=== PATIENT | female | born 1955 | race Two or more races ===

== ENCOUNTER 2018-02-03 18:08 | Emergency (ER) | payer OTHER ==
[~2018-02-03] VITALS: Ht 165.1 cm; Wt 85.3 kg
[~2018-02-03 18:08] MED LIST: ATACAND HCT 11 UDTA1; ATENOLOL100 MG; ATENOLOL25 MG; AZITHROMYCIN500 MG PO; DOLOGESIC 500-1 EACH PO; HYDROCHLOROTH12.5 M1; LEVSIN/SL0.125 MG SL; METFORMIN HCL500 M3; MICROZIDE12.5 MG; OMEPRAZOLE10 MG; OMEPRAZOLE20 MG; PEPCID40 MG PO; PROVENTIL3 ML/2.5 M IH; TUSSIONEX PENNKI5 ML PO; XOPENEX1.25 MG/0. IH
[2018-02-03] MEDS ORDERED: ATACAND16 MG (18:45)
[2018-02-03] MEDS ORDERED: ANASTROZOLE1 MG (18:46)
== END 2018-02-03 21:35 | disposition home or self-care (01) ==
LOC: ER 18:08
DX: B34.9 Viral infection, unspecified (principal)

== ENCOUNTER 2018-02-07 07:34 | Emergency (ER) | payer OTHER ==
[~2018-02-07] VITALS: Ht 165.1 cm; Wt 88.5 kg
[~2018-02-07 07:34] MED LIST changes: +ANASTROZOLE1 MG; +ATACAND16 MG
[2018-02-07] MEDS ORDERED: PROMETH-CODEIN 65 ML PO (13:42)
[2018-02-07] MEDS ORDERED: FLONASE ALLERG9.9 ML NASAL (13:42)
[2018-02-07] MEDS ORDERED: LEVALBUTER1.25 MG/3 IH (13:42)
[2018-02-07] MEDS ORDERED: MUCINEX DM ER1 EAC1 PO (13:42)
[2018-02-07] MEDS ORDERED: ZITHROMAX500 MG PO (13:42)
[2018-02-07] MEDS ORDERED: KETO10TA2 PO (13:42)
[2018-02-07] MEDS ORDERED: IPRATROPIU0.2 MG/1 M IH (13:48)
[2018-02-07] MEDS ORDERED: BUDESONIDE0.5 MG/2 M IH (13:48)
== END 2018-02-07 22:09 ==
LOC: ER 07:34
DX: J06.9 Acute upper respiratory infection, unspecified (principal); J11.1 Influenza due to unidentified influenza virus with other respiratory manifestations; J01.40 Acute pansinusitis, unspecified

== ENCOUNTER 2018-07-11 08:07 | Emergency (ER) | payer OTHER ==
[~2018-07-11] VITALS: Ht 165.1 cm; Wt 85.3 kg
[~2018-07-11 08:07] MED LIST changes: +BUDESONIDE0.5 MG/2 M IH; +FLONASE ALLERG9.9 ML NASAL; +IPRATROPIU0.2 MG/1 M IH; +KETO10TA2 PO; +LEVALBUTER1.25 MG/3 IH; +MUCINEX DM ER1 EAC1 PO; +PROMETH-CODEIN 65 ML PO; +ZITHROMAX500 MG PO
[2018-07-11] MEDS ORDERED: ANASTROZOLE1 MG (08:26)
[2018-07-11] MEDS ORDERED: LEVALBUTER1.25 MG/3 IH (13:17)
[2018-07-11] MEDS ORDERED: KETO10TA2 PO (13:17)
[2018-07-11] MEDS ORDERED: OSEL75CA PO (13:17)
[2018-07-11] MEDS ORDERED: TESSALON PERLE100 M1 PO (13:17)
[2018-07-11] MEDS ORDERED: AIRBORNE EFFER1 EACH PO (13:17)
[2018-07-11] MEDS ORDERED: MUCINEX DM ER1 EAC1 PO (13:17)
== END 2018-07-11 14:34 ==
LOC: ER 08:07
DX: J11.1 Influenza due to unidentified influenza virus with other respiratory manifestations (principal)

== ENCOUNTER 2021-10-30 06:46 | Emergency (ER) | payer OTHER ==
[~2021-10-30] VITALS: Ht 165.1 cm; Wt 76.2 kg
[~2021-10-30 06:46] MED LIST changes: +AIRBORNE EFFER1 EACH PO; +OSEL75CA PO; +TESSALON PERLE100 M1 PO
[2021-10-30] MEDS ORDERED: KETO10TA2 PO (11:59)
== END 2021-10-30 12:28 | disposition home or self-care (01) ==
LOC: ER 06:46
DX: R10.32 Left lower quadrant pain (principal); E11.9 Type 2 diabetes mellitus without complications; Z79.84 Long term (current) use of oral hypoglycemic drugs; I10 Essential (primary) hypertension; Z88.0 Allergy status to penicillin; Z88.8 Allergy status to other drugs, medicaments and biological substances

== ENCOUNTER 2023-05-18 15:59 | Emergency (ER) | payer OTHER ==
[~2023-05-18] VITALS: Ht 165.1 cm; Wt 72.6 kg
[2023-05-18] MEDS ORDERED: DICLOFENAC SODI75 MG PO (19:44)
== END 2023-05-18 20:39 ==
LOC: ER 16:00
DX: S93.601A Unspecified sprain of right foot, initial encounter (principal); Z88.0 Allergy status to penicillin; Z88.6 Allergy status to analgesic agent; Z85.3 Personal history of malignant neoplasm of breast; W18.39XA Other fall on same level, initial encounter; Y93.89 Activity, other specified; Y92.89 Other specified places as the place of occurrence of the external cause
CPT/HCPCS: 73600; 73630; 96372; 99284; J1885

== ENCOUNTER → 2023-07-28 | Emergency (ER) | payer OTHER ==
[~2023-07-28] VITALS: Ht 165.1 cm; Wt 76.2 kg
[~2023-07-28] MED LIST changes: +ALBUTEROL1.25 MG/3 IH; +DIABETIC TUSSI118 M3 PO; +DICLOFENAC SODI75 MG PO; +GUAIFENESIN/DEXTROMETHORPHAN 100 MG/5 ML ML PO ONE; +IPRATROPIUM/ALBUTEROL SULFATE 3 ML AMPUL.NEB IH SCH; +NORVASC2.5 MG PO
[2023-07-28 15:35] LABS: HEMATOCRIT 34.5 % (36.0-45.00); HEMOGLOBIN 11.3 g/dL (12.0-15.00); MEAN CELL VOLUME 82.6 fL (80.00-100.00); MEAN CORPUSCULAR HEMOGLOBIN 27.2 pg (27.00-32.0); MEAN CORPUSCULAR HGB CONC 32.9 g/dl (32.0-36.0); PLATELET COUNT 207 K/uL (150-450); RED BLOOD COUNT 4.17 M/uL (4.00-6.00)
== END | disposition home or self-care (01) ==
LOC: ER 11:14
PROVIDERS: Nurse Practitioner Family
DX: J06.9 Acute upper respiratory infection, unspecified (principal); E11.9 Type 2 diabetes mellitus without complications; Z79.84 Long term (current) use of oral hypoglycemic drugs; I10 Essential (primary) hypertension; Z88.0 Allergy status to penicillin; Z88.8 Allergy status to other drugs, medicaments and biological substances; Z85.3 Personal history of malignant neoplasm of breast; Z20.822 Contact with and (suspected) exposure to COVID-19

== ENCOUNTER 2024-01-19 10:06 | Emergency (ER) | payer OTHER ==
[~2024-01-19] VITALS: Ht 160 cm; Wt 77.1 kg
[~2024-01-19 10:06] MED LIST changes: -GUAIFENESIN/DEXTROMETHORPHAN 100 MG/5 ML ML PO ONE; -IPRATROPIUM/ALBUTEROL SULFATE 3 ML AMPUL.NEB IH SCH
== END 2024-01-19 12:15 | disposition home or self-care (01) ==
LOC: ER 10:06
DX: I10 Essential (primary) hypertension (principal); Z88.0 Allergy status to penicillin; Z88.6 Allergy status to analgesic agent; Z85.3 Personal history of malignant neoplasm of breast

== ENCOUNTER 2024-03-09 18:36 | Emergency (ER) | payer OTHER ==
[~2024-03-09] VITALS: Ht 165.1 cm; Wt 76.2 kg
[2024-03-09] MEDS ORDERED: FAMOTIDINE/PF 20 MG in 0.9 % SODIUM CHLORIDE 8 ML IV PUSH STA (20:01)
[2024-03-09] MEDS ORDERED: DIPHENOXYLATE HCL/ATROPINE 1 UDTAB TABLET PO ONE (20:15)
[2024-03-09] MEDS ORDERED: ONDANSETRON HCL 2 MG/ML VIAL IV ONE (20:15)
[2024-03-09] MEDS ORDERED: 0.9 % SODIUM CHLORIDE 1,000 ML IV SCH (20:15)
[2024-03-09 20:50] LABS: HEMATOCRIT 37.8 % (36.0-45.00); HEMOGLOBIN 12.6 g/dL (12.0-15.00); MEAN CELL VOLUME 84.4 fL (80.00-100.00); MEAN CORPUSCULAR HEMOGLOBIN 28.1 pg (27.00-32.0); MEAN CORPUSCULAR HGB CONC 33.3 g/dl (32.0-36.0); PLATELET COUNT 183 K/uL (150-450); RED BLOOD COUNT 4.48 M/uL (4.00-6.00); RED CELL DISTRIBUTION WIDTH 14.9 % (11.5-14.5)
[2024-03-09 21:12] LABS: ALBUMIN 4.4 gm/dL (3.4-5.0); BILIRUBIN TOTAL 0.58 mg/dL (0.3-1.2); BILIRUBIN,CONJUGATED 0.14 mg/dL (0.0-0.2); BILIRUBIN,UNCONJUGATED 0.44 mg/dL (0.0-0.6); CALCIUM 9.3 mg/dL (8.5-10.1); CREATININE SERUM 0.78 mg/dL (0.55-1.02); GFR 73.89; GLOBULINA 4.3 G/DL (2.4-3.5); POTASSIUM 3.27 mEq/L (3.5-5.1); TOTAL PROTEIN 8.7 gm/dL (6.4-8.2)
[2024-03-09] MEDS ORDERED: CIPRO500 MG PO (22:10)
[2024-03-09] MEDS ORDERED: LEVSIN/SL0.125 MG SL (22:10)
[2024-03-09] MEDS ORDERED: ZOFRAN8 MG PO (22:10)
[2024-03-09] MEDS ORDERED: PEPCID AC20 MG PO (22:10)
[2024-03-09] MEDS ORDERED: KETOROLAC TROMETHAMINE 30 MG VIAL IV ONE (22:15)
== END 2024-03-09 22:43 | disposition home or self-care (01) ==
LOC: ER 18:38
PROVIDERS: General Practice
DX: K52.9 Noninfective gastroenteritis and colitis, unspecified (principal); E11.9 Type 2 diabetes mellitus without complications; Z79.84 Long term (current) use of oral hypoglycemic drugs; I10 Essential (primary) hypertension; Z88.0 Allergy status to penicillin; Z88.8 Allergy status to other drugs, medicaments and biological substances; Z20.822 Contact with and (suspected) exposure to COVID-19